=== PATIENT | female | born 2000 | race Caucasian/White ===

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

== ENCOUNTER → 2018-09-01 | Outpatient (CLI) | payer OTHER ==
--- NOTE | 2018-09-01 10:18 | CT ---
EXAMINATION TYPE: CT chest wo con DATE OF EXAM: 09/01/2018 COMPARISON: NONE HISTORY: Epigastric pain CT DLP: 136.7 mGycm. Automated Exposure Control for Dose Reduction was Utilized. TECHNIQUE: CT scan of the thorax is performed without IV contrast. FINDINGS: LUNGS: The lungs are grossly clear, there is no concerning parenchymal mass or nodule identified. T here is no pleural effusion or pneumothorax seen. The tracheobronchial tree is patent. MEDIASTINUM: Lack of IV contrast is noted to limit evaluation for mediastinal and especially hilar ad enopathy. There are no definitive greater than 1 cm hilar or mediastinal lymph nodes. No cardiomega ly or pericardial effusion is seen. OTHER: Few Schmorl's nodes are seen in the thoracic spine. No hernia is present on CT. Very minimal triangular density in the anterior superior mediastinum is presumed to represent a tiny thymic remnan t. IMPRESSION: No CT finding to correspond to the patient's epigastric pain. No hiatal hernia seen on CT .
== END | disposition home or self-care (01) ==
LOC: RADCTMAIN 07:37
PROVIDERS: ATTEND Family Medicine
DX: K21.9 Gastro-esophageal reflux disease without esophagitis (principal)
CPT/HCPCS: 71250

== ENCOUNTER → 2019-08-05 | Outpatient (CLI) | payer BC ==
--- NOTE | 2019-08-05 10:35 | CT ---
EXAMINATION TYPE: CT angio chest DATE OF EXAM: 08/05/2019 COMPARISON: CT chest September 01, 2018 HISTORY: Shortness of breath x [address] DLP: 160.8 mGycm. Automated Exposure Control for Dose Reduction was Utilized. CONTRAST: CTA scan of the thorax is performed with IV Contrast, patient injected with 100 mL of Isovue 370, pul monary embolism protocol. MIP Images are created on CT scanner and reviewed. FINDINGS: LUNGS: The lungs remain grossly clear, there is no concerning parenchymal mass or nodule identified. There is no pleural effusion or pneumothorax seen. The tracheobronchial tree is patent. MEDIASTINUM: There is suboptimal bolus with most dense contrast in the SVC and near equal contrast in the right and left heart systems with heterogeneity but no convincing evidence for acute pulmonary e mbolism. There are no greater than 1 cm hilar or mediastinal lymph nodes. No cardiomegaly or peric ardial effusion is seen. OTHER: No additional significant abnormality is seen. IMPRESSION: Suboptimal study without CT evidence for acute pulmonary embolism. No suspicious acute pr ocess identified.
== END | disposition home or self-care (01) ==
LOC: RADCTMAIN 09:24
PROVIDERS: ATTEND Family Medicine
DX: R06.02 Shortness of breath (principal); Z88.1 Allergy status to other antibiotic agents
CPT/HCPCS: 85379; 71275; Q9967

== ENCOUNTER → 2019-09-21 | Outpatient (CLI) | payer BC ==
--- NOTE | 2019-09-21 18:30 | ECHOF ---
Referral Reason:R06.00 Dyspnea MEASUREMENTS -------- HEIGHT: 154.9 cm WEIGHT: 61.2 kg BP: RVIDd: 2.4 cm (< 3.3) IVSd: 1.1 cm (0.6 - 1.1) LVIDd: 4.4 cm (3.9 - 5.3) LVPWd: 0.9 cm (0.6 - 1.1) IVSs: 1.3 cm LVIDs: 2.5 cm LVPWs: 1.5 cm LAESV Index (A-L): 16.56 ml/m Ao Diam: 2.4 cm (2.0 - 3.7) AV Cusp: 2.2 cm (1.5 - 2.6) LA Diam: 2.4 cm (2.7 - 3.8) MV EXCURSION: 11.562 mm (> 18.000) MV EF SLOPE: 125 mm/s (70 - 150) EPSS: 0.9 cm MV E Duran: 1.09 m/s MV DecT: 217 ms MV A Duran: 0.49 m/s MV E/A Ratio: 2.22 RAP: 5.00 mmHg RVSP: 13.86 mmHg FINDINGS -------- Sinus rhythm. This was a technically good study. The left ventricular size is normal. Left ventricular wall thickness is normal. Overall left vent ricular systolic function is normal with, an EF between 55 - 60 %. The diastolic filling pattern is normal for the age of the patient 7.99. The right ventricle is normal in size. The left atrial size is normal. Normal LA size by volume 22+/-6 ml/m2. The right atrial size is normal. Interatrial and interventricular septum intact. The aortic valve is trileaflet and appears structurally normal. The mitral valve is normal. Mild mitral regurgitation is present. The tricuspid valve appears structurally normal. Trace tricuspid regurgitation present. Right sri tricular systolic pressure is normal at < 35 mmHg. Trace/mild (physiologic) pulmonic regurgitation. The aortic root size is normal. Normal inferior vena cava with normal inspiratory collapse consistent with estimated right atrial pre ssure of 5 mmHg. There is no pericardial effusion. CONCLUSIONS -------- 1. The left ventricular size is normal. 2. Left ventricular wall thickness is normal. 3. Overall left ventricular systolic function is normal with, an EF between 55 - 60 %. 4. The diastolic filling pattern is normal for the age of the patient 7.99 5. Mild mitral regurgitation is present. 6. Trace tricuspid regurgitation present. 7. Trace/mild (physiologic) pulmonic regurgitation. MULTIMEDIA ASSISTANT: Elizabeth Mack RDCS
== END | disposition home or self-care (01) ==
LOC: RADECHMAIN 16:16
PROVIDERS: ATTEND Internal Medicine Critical Care Medicine
DX: I05.1 Rheumatic mitral insufficiency (principal)
CPT/HCPCS: 93306